=== PATIENT | male | born 1950 ===

== ENCOUNTER 2017-12-12 13:38 | Inpatient (IN) | payer MEDICARE ==
[2017-12-12] VITALS (12 sets, daily range): BP systolic 94–125; BP diastolic 64–77; BMI 22.2
[~2017-12-12] VITALS: Ht 172.7 cm; Wt 66.3 kg
--- NOTE | ~2017-12-12 | EC ---
PATIENT:ANAM VALLES DATE OF SERVICE: 12/12/17 SEX: M MEDICAL RECORD: [id number] DATE OF : [birth year] LOCATION:[facility] AGE OF PATIENT: 67 ADMISSION DATE: 12/12/17 REFERRING PHYSICIAN: INTERPRETING PHYSICIAN: CAROLINE BRUCE MD ECHOCARDIOGRAM REPORT ECHO CHARGES 5 ECHO LIMITED Date: 12/13 CLINICAL DIAGNOSIS: CHF, ASSESS EF ECHOCARDIOGRAPHIC MEASUREMENTS (adult normal given) AC root (d.<3.7cm) cm LV Septum d (<1.2 cm> cm Valve Excursion cm LV Septum (systole) cm Left Atria (s.<4.0cm> cm LVPW d(<1.2cm) cm RV (d.<2.3cm) cm LVPW (sytole) cm LV diastole(<5.6CM) cm MV E-F(>70mm/sec) cm LV systole cm LVOT Diameter cm MV exc.(>10mm) cm Est.ejection fraction (50-75%) % DOPPLER: LVIT cm/sec A cm/sec E cm/sec LA cm/sec RVSP mmHg LVOT cm/sec AOP1/2T m/s Asc. Ao cm/sec RVOT cm/sec RA cm/sec PA cm/sec AV Gradient Peak mmHg AV Mean mmHg AV Area cm MV Gradient Peak mmHg MV Mean mmHg MV Area cm COMMENTS: Poured Wall Foreman: 2 ANIKA TIWARI Capsule Maker: 1 Dr. Bruce TAPE# PACS Pericardial Effusion N DATE OF SERVICE: Limited echocardiogram due to inability to obtain good views. FINDINGS: Left ventricular chamber size is within normal limits. Left ventricular function appears to be preserved at 55%. No evidence of pericardial effusion. Left ventricular thrombus. Left atrium, right atrium, and right ventricle chamber sizes are within normal limits. TRANSINT:[id number] Voice Confirmation ID: [id number] DOCUMENT ID: [id number] ECHOCARDIOGRAM REPORT [id number] ANAM VALLES JEFFREY MD at 1713 CC: [id number] DICTATION DATE: 12/13/17 1235 BILLING CLINICIAN: 12/13/17 1256 [place] [address]
[2017-12-12] MEDS ORDERED: PHENERGAN25 M1 PO (14:16)
[2017-12-12] MEDS ORDERED: MOBIC7.5 MG PO (14:16)
[2017-12-12] MEDS ORDERED: LOPRESSOR25 MG PO (14:17)
[2017-12-12] MEDS ORDERED: ZYLOPRIM300 MG PO (14:17)
[2017-12-12] MEDS ORDERED: MACROBID100 MG PO (14:17)
[2017-12-12] MEDS ORDERED: KEPPRA500 MG PO (14:18)
[2017-12-12] MEDS ORDERED: LISINOPRIL10 MG PO (14:18)
[2017-12-12] MEDS ORDERED: DEPAKOTE250 MG PO (14:18)
[2017-12-12] MEDS ORDERED: ZOCOR40 MG PO (14:20)
[2017-12-12] MEDS ORDERED: RISPERDAL0.5 MG PO (14:21)
[2017-12-12] MEDS ORDERED: FUROSEMIDE40 MG PO (14:22)
[2017-12-12] MEDS ORDERED: ZANAFLEX2 M1 PO (14:22)
[2017-12-12] MEDS ORDERED: K-TAB10 MEQ PO (14:23)
[2017-12-12] MEDS ORDERED: GEODON20 MG PO (14:24)
[2017-12-12] MEDS ORDERED: REMERON15 MG PO (14:24)
[2017-12-12] MEDS ORDERED: IBUPROFEN800 MG PO (14:24)
[2017-12-12] MEDS ORDERED: NEXIUM40 MG PO (14:25)
[2017-12-12] MEDS ORDERED: NIFEDIPINE ER60 MG PO (14:25)
[2017-12-12] MEDS ORDERED: HYDROCODONE-APA1 TAB PO (14:26)
[2017-12-12] MEDS ORDERED: XANAX1 MG PO (14:27)
[2017-12-12] MEDS ORDERED: BAYER CHEWABLE81 MG PO (14:28)
[2017-12-12] MEDS ORDERED: NEURONTIN 300300 MG PO (14:28)
[2017-12-12] MEDS ORDERED: OXYBUTYNIN CHLOR5 MG PO (14:28)
[2017-12-12] MEDS ORDERED: COLACE100 MG PO (14:29)
[2017-12-12] MEDS ORDERED: ZANTAC150 MG PO (14:29)
[2017-12-12] MEDS ORDERED: EAR WAX REMOVAL15 ML TP (14:30)
[2017-12-12] MEDS ORDERED: TUMS X-STR300 MG PO (14:30)
[2017-12-12 16:38] LABS: COLOR DK YELLOW (YELLOW)
[2017-12-12 16:39] LABS: APPEARANCE HAZY (CLEAR); BILIRUBIN 1+ (NEGATIVE); GLUCOSE NEGATIVE (NEGATIVE); KETONE NEGATIVE (NEGATIVE); NITRITE NEGATIVE (NEGATIVE); PROTEIN NEGATIVE (NEGATIVE); SPECIFIC GRAVITY 1.015 (1.005-1.020); UROBILINOGEN NORMAL (NORMAL)
[2017-12-12 16:40] LABS: AMORPHOUS SEDIMENT <1+ /lpf (NONE SEEN); BACTERIA FEW /hpf (NONE SEEN); WHITE CELLS - URINE OCC /hpf (0-5)
[2017-12-12 17:23] LABS: BASOPHILS 0.2 % (0-2); EOSINOPHILS 0 % (0-7); HEMATOCRIT 31.8 % (42.0-54.0); HEMOGLOBIN 10.9 g/dL (13.5-17.5); IMMATURE GRANULOCYTES 0.8 % (0-5); LYMPHOCYTES 4.3 % (15-50); MCH 29.3 pg (26.0-34.0); MCHC 34.3 g/dL (31.0-37.0); MCV 85.5 fL (80.0-100.0); MEAN PLATELET VOLUME 10.2 fL (7.4-10.4); MONOCYTES 5.2 % (2-11); NEUTROPHILS 89.5 % (40-80); PLATELET COUNT 101 10x3/uL (130-400); RBC 3.72 10x6/uL (4.20-6.10); RDW 15.9 % (11.5-14.5)
[2017-12-12 17:41] LABS: % SATURATION 7 % (15-55); IRON 16 ug/dl (35-150); TOTAL IRON BIND CAPACITY 219 ug/dl (260-445); UNSAT IRON BIND CAPACITY 203 ug/dl (150-375)
[2017-12-12 18:26] LABS: ANION GAP 19.9 mmol/L (8-16); CALCIUM 8.9 mg/dL (8.5-10.1); CARBON DIOXIDE 23.3 mmol/L (21.0-32.0); CREATININE - SERUM 2.5 mg/dL (0.6-1.3); MAGNESIUM - SERUM 2.1 mg/dL (1.8-2.4); POTASSIUM - SERUM 4.2 mmol/L (3.5-5.1)
[2017-12-13] VITALS (24 sets, daily range): BP systolic 111–151; BP diastolic 67–85; BMI 22.2
[2017-12-13 03:55] LABS: BASOPHILS 0.1 % (0-2); EOSINOPHILS 0 % (0-7); HEMATOCRIT 31.4 % (42.0-54.0); HEMOGLOBIN 10.8 g/dL (13.5-17.5); IMMATURE GRANULOCYTES 0.5 % (0-5); LYMPHOCYTES 4.3 % (15-50); MCH 29.1 pg (26.0-34.0); MCHC 34.4 g/dL (31.0-37.0); MCV 84.6 fL (80.0-100.0); MEAN PLATELET VOLUME 10.6 fL (7.4-10.4); MONOCYTES 5.1 % (2-11); RBC 3.71 10x6/uL (4.20-6.10); RDW 15.8 % (11.5-14.5); WBC 9.3 10x3/uL (4.8-10.8)
[2017-12-13 03:56] LABS: PLATELET COUNT 122 10x3/uL (130-400)
[2017-12-13 04:09] LABS: ALBUMIN 2.6 g/dL (3.4-5.0); ANION GAP 13.3 mmol/L (8-16); BILIRUBIN - TOTAL 0.7 mg/dL (0.2-1.3); CALCIUM 8.7 mg/dL (8.5-10.1); CARBON DIOXIDE 27.6 mmol/L (21.0-32.0); POTASSIUM - SERUM 3.9 mmol/L (3.5-5.1); PROTEIN - SERUM 7.2 g/dL (6.4-8.2)
[2017-12-13 04:11] LABS: CREATININE - SERUM 1.7 mg/dL (0.6-1.3)
[2017-12-14] VITALS (12 sets, daily range): BP systolic 107–151; BP diastolic 64–82
[2017-12-14 01:20] LABS: HEMATOCRIT 29.1 % (42.0-54.0); HEMOGLOBIN 10.2 g/dL (13.5-17.5)
[2017-12-14 04:04] LABS: BASOPHILS 0.2 % (0-2); EOSINOPHILS 0.1 % (0-7); HEMATOCRIT 31.4 % (42.0-54.0); HEMOGLOBIN 10.7 g/dL (13.5-17.5); IMMATURE GRANULOCYTES 0.5 % (0-5); LYMPHOCYTES 7.2 % (15-50); MCH 29.3 pg (26.0-34.0); MCHC 34.1 g/dL (31.0-37.0); MONOCYTES 6.2 % (2-11); NEUTROPHILS 85.8 % (40-80); PLATELET COUNT 141 10x3/uL (130-400); RBC 3.65 10x6/uL (4.20-6.10); RDW 15.9 % (11.5-14.5); WBC 9.2 10x3/uL (4.8-10.8)
[2017-12-14 04:27] LABS: ALBUMIN 2.4 g/dL (3.4-5.0); ANION GAP 11.3 mmol/L (8-16); BILIRUBIN - TOTAL 1.28 mg/dL (0.2-1.3); CALCIUM 9.2 mg/dL (8.5-10.1); CARBON DIOXIDE 29.4 mmol/L (21.0-32.0); POTASSIUM - SERUM 3.7 mmol/L (3.5-5.1); PROTEIN - SERUM 6.9 g/dL (6.4-8.2)
[2017-12-14 04:37] LABS: CREATININE - SERUM 1.2 mg/dL (0.6-1.3)
[2017-12-14 08:50] LABS: HEMATOCRIT 30.5 % (42.0-54.0); HEMOGLOBIN 10.7 g/dL (13.5-17.5)
[2017-12-14 14:52] LABS: HEMATOCRIT 30.7 % (42.0-54.0); HEMOGLOBIN 10.4 g/dL (13.5-17.5)
[2017-12-15] VITALS: BP 158/85
[2017-12-15 04:00] VITALS: BP 124/68
[2017-12-15 06:42] LABS: BASOPHILS 0.1 % (0-2); EOSINOPHILS 0.4 % (0-7); HEMATOCRIT 27.9 % (42.0-54.0); HEMOGLOBIN 9.4 g/dL (13.5-17.5); IMMATURE GRANULOCYTES 1.6 % (0-5); LYMPHOCYTES 5.8 % (15-50); MCHC 33.7 g/dL (31.0-37.0); MCV 86.1 fL (80.0-100.0); MEAN PLATELET VOLUME 11.3 fL (7.4-10.4); MONOCYTES 13.5 % (2-11); NEUTROPHILS 78.6 % (40-80); PLATELET COUNT 162 10x3/uL (130-400); RBC 3.24 10x6/uL (4.20-6.10); RDW 15.9 % (11.5-14.5); WBC 9.2 10x3/uL (4.8-10.8)
[2017-12-15 07:03] LABS: ALBUMIN 2.1 g/dL (3.4-5.0); ALKALINE PHOSPHATASE 199 U/L (46-116); BILIRUBIN - TOTAL 0.99 mg/dL (0.2-1.3); CALC OSMOLALITY 266 mosm/kg (275-300); CALCIUM 8.5 mg/dL (8.5-10.1); CARBON DIOXIDE 25.6 mmol/L (21.0-32.0); CHLORIDE - SERUM 98 mmol/L (98-107); GLUCOSE 106 mg/dL (74-106); POTASSIUM - SERUM 3.6 mmol/L (3.5-5.1); PROTEIN - SERUM 6.1 g/dL (6.4-8.2); SODIUM 132 mmol/L (136-145); UREA NITROGEN 19 mg/dL (7-18); eGFR NON AFRICAN AMERICAN 79 mL/min (90-120)
[2017-12-15 07:04] LABS: ALT (SGPT) 48 U/L (10-68)
[2017-12-15 09:18] VITALS: BP 131/70; BP 99/58
[2017-12-15 11:38] VITALS: Ht 172.7 cm; Wt 66.3 kg
[2017-12-15 13:25] VITALS: BP 129/69
[2017-12-15 16:12] LABS: APTT 28.6 SECONDS (22.8-39.4); INR 1.14 (0.85-1.17); PROTIME 14.2 SECONDS (11.6-15.0)
[2017-12-15 16:20] VITALS: BP 121/69
[2017-12-15 20:00] VITALS: BP 130/73
[2017-12-16] VITALS: BP 137/65
[2017-12-16 04:00] VITALS: BP 145/73
[2017-12-16 06:11] LABS: BASOPHILS 0.1 % (0-2); EOSINOPHILS 0.9 % (0-7); HEMATOCRIT 27.9 % (42.0-54.0); HEMOGLOBIN 9.2 g/dL (13.5-17.5); LYMPHOCYTES 5.9 % (15-50); MCH 28.5 pg (26.0-34.0); MCV 86.4 fL (80.0-100.0); MEAN PLATELET VOLUME 10.4 fL (7.4-10.4); MONOCYTES 11.3 % (2-11); NEUTROPHILS 77.8 % (40-80); PLATELET COUNT 171 10x3/uL (130-400); RBC 3.23 10x6/uL (4.20-6.10); WBC 9.3 10x3/uL (4.8-10.8)
[2017-12-16 06:41] LABS: ALKALINE PHOSPHATASE 163 U/L (46-116); CALCIUM 8.5 mg/dL (8.5-10.1); CARBON DIOXIDE 25.1 mmol/L (21.0-32.0); CHLORIDE - SERUM 102 mmol/L (98-107); CREATININE - SERUM 0.8 mg/dL (0.6-1.3); GLUCOSE 89 mg/dL (74-106); POTASSIUM - SERUM 3.2 mmol/L (3.5-5.1); PROTEIN - SERUM 5.7 g/dL (6.4-8.2); SODIUM 135 mmol/L (136-145); eGFR NON AFRICAN AMERICAN > 90 mL/min (90-120)
[2017-12-16 06:42] LABS: ALT (SGPT) 30 U/L (10-68); CALC OSMOLALITY 268 mosm/kg (275-300); UREA NITROGEN 13 mg/dL (7-18)
[2017-12-16 08:22] VITALS: BP 113/71
[2017-12-16 12:48] VITALS: BP 132/70
[2017-12-16 16:08] VITALS: BP 125/77
[2017-12-16 20:00] VITALS: BP 136/73
[2017-12-17] VITALS: BP 126/70
[2017-12-17 05:58] VITALS: BP 121/71
[2017-12-17 07:25] LABS: BASOPHILS 0.2 % (0-2); EOSINOPHILS 1.3 % (0-7); HEMATOCRIT 30.4 % (42.0-54.0); HEMOGLOBIN 10.1 g/dL (13.5-17.5); IMMATURE GRANULOCYTES 5.2 % (0-5); LYMPHOCYTES 7.5 % (15-50); MCHC 33.2 g/dL (31.0-37.0); MCV 87.4 fL (80.0-100.0); MEAN PLATELET VOLUME 10.3 fL (7.4-10.4); MONOCYTES 8.2 % (2-11); NEUTROPHILS 77.6 % (40-80); PLATELET COUNT 194 10x3/uL (130-400); RBC 3.48 10x6/uL (4.20-6.10); RDW 16.4 % (11.5-14.5); WBC 9.2 10x3/uL (4.8-10.8)
[2017-12-17 07:33] LABS: ALBUMIN 2.2 g/dL (3.4-5.0); ALKALINE PHOSPHATASE 155 U/L (46-116); ALT (SGPT) 31 U/L (10-68); BILIRUBIN - TOTAL 0.46 mg/dL (0.2-1.3); CALC OSMOLALITY 270 mosm/kg (275-300); CALCIUM 9.2 mg/dL (8.5-10.1); CARBON DIOXIDE 25.5 mmol/L (21.0-32.0); CHLORIDE - SERUM 103 mmol/L (98-107); CREATININE - SERUM 0.9 mg/dL (0.6-1.3); GLUCOSE 105 mg/dL (74-106); POTASSIUM - SERUM 3.3 mmol/L (3.5-5.1); PROTEIN - SERUM 6.3 g/dL (6.4-8.2); SODIUM 136 mmol/L (136-145); UREA NITROGEN 11 mg/dL (7-18); eGFR NON AFRICAN AMERICAN 89 mL/min (90-120)
[2017-12-17 08:24] VITALS: BP 138/77
[2017-12-17 13:05] VITALS: BP 142/71
[2017-12-17 15:41] VITALS: BP 138/80
[2017-12-17 21:24] VITALS: BP 136/71
[2017-12-18 04:01] VITALS: BP 146/75
[2017-12-18 07:05] LABS: BASOPHILS 0.1 % (0-2); EOSINOPHILS 2.1 % (0-7); HEMATOCRIT 28.3 % (42.0-54.0); HEMOGLOBIN 9.5 g/dL (13.5-17.5); IMMATURE GRANULOCYTES 5.1 % (0-5); LYMPHOCYTES 6.2 % (15-50); MCH 29.1 pg (26.0-34.0); MCHC 33.6 g/dL (31.0-37.0); MCV 86.5 fL (80.0-100.0); MEAN PLATELET VOLUME 9.4 fL (7.4-10.4); MONOCYTES 8.4 % (2-11); NEUTROPHILS 78.1 % (40-80); PLATELET COUNT 227 10x3/uL (130-400); RBC 3.27 10x6/uL (4.20-6.10); RDW 16.4 % (11.5-14.5); WBC 9.7 10x3/uL (4.8-10.8)
[2017-12-18 07:16] LABS: ALBUMIN 2.1 g/dL (3.4-5.0); ALKALINE PHOSPHATASE 133 U/L (46-116); ALT (SGPT) 32 U/L (10-68); BILIRUBIN - TOTAL 0.41 mg/dL (0.2-1.3); CALC OSMOLALITY 264 mosm/kg (275-300); CALCIUM 8.8 mg/dL (8.5-10.1); CARBON DIOXIDE 24.4 mmol/L (21.0-32.0); CHLORIDE - SERUM 102 mmol/L (98-107); CREATININE - SERUM 0.8 mg/dL (0.6-1.3); GLUCOSE 108 mg/dL (74-106); POTASSIUM - SERUM 3.7 mmol/L (3.5-5.1); SODIUM 133 mmol/L (136-145); eGFR NON AFRICAN AMERICAN > 90 mL/min (90-120)
[2017-12-18 07:20] LABS: UREA NITROGEN 8 mg/dL (7-18)
[2017-12-18 08:55] VITALS: BP 142/77
[2017-12-18 12:12] VITALS: BP 124/73
[2017-12-18 16:12] VITALS: BP 122/70
[2017-12-18 20:00] VITALS: BP 124/71
[2017-12-18 23:49] VITALS: BP 127/76
[2017-12-19 04:00] VITALS: BP 132/76
[2017-12-19 05:55] LABS: BASOPHILS 0.1 % (0-2); HEMATOCRIT 28.5 % (42.0-54.0); HEMOGLOBIN 9.5 g/dL (13.5-17.5); IMMATURE GRANULOCYTES 4.5 % (0-5); LYMPHOCYTES 7.2 % (15-50); MCH 29.1 pg (26.0-34.0); MCHC 33.3 g/dL (31.0-37.0); MCV 87.2 fL (80.0-100.0); MEAN PLATELET VOLUME 9.7 fL (7.4-10.4); MONOCYTES 9.9 % (2-11); NEUTROPHILS 76.3 % (40-80); PLATELET COUNT 265 10x3/uL (130-400); RBC 3.27 10x6/uL (4.20-6.10); RDW 16.8 % (11.5-14.5); WBC 9.5 10x3/uL (4.8-10.8)
[2017-12-19 06:24] LABS: ALBUMIN 2.2 g/dL (3.4-5.0); ALKALINE PHOSPHATASE 132 U/L (46-116); ALT (SGPT) 38 U/L (10-68); CALC OSMOLALITY 269 mosm/kg (275-300); CALCIUM 8.9 mg/dL (8.5-10.1); CARBON DIOXIDE 25.2 mmol/L (21.0-32.0); CHLORIDE - SERUM 102 mmol/L (98-107); CREATININE - SERUM 0.7 mg/dL (0.6-1.3); GLUCOSE 103 mg/dL (74-106); POTASSIUM - SERUM 3.7 mmol/L (3.5-5.1); PROTEIN - SERUM 6.1 g/dL (6.4-8.2); SODIUM 136 mmol/L (136-145); UREA NITROGEN 7 mg/dL (7-18); eGFR NON AFRICAN AMERICAN > 90 mL/min (90-120)
[2017-12-19 08:11] VITALS: BP 139/81
[2017-12-19] MEDS ORDERED: ZOSYN 3.3753.375 G1 IVPB (11:23)
[2017-12-19] MEDS ORDERED: FLORAJEN3 CAPS460 MG PO (11:24)
[2017-12-19] MEDS ORDERED: TESSALON PERLE100 MG PO (11:24)
[2017-12-19] MEDS ORDERED: MUCINEX600 MG PO (11:24)
[2017-12-19] MEDS ORDERED: PROTONIX40 MG PO (11:25)
[2017-12-19 12:15] VITALS: BP 114/76
== END 2017-12-19 16:08 | DRG 871 ==
LOC: D.MS 13:38 → D.ICU 13:38 → D.MS 12-14 15:06
PROVIDERS: Family Medicine; Internal Medicine Nephrology
DX: A41.9 Sepsis, unspecified organism (principal); R65.21 Severe sepsis with septic shock; T83.511A Infection and inflammatory reaction due to indwelling urethral catheter, initial encounter; I13.0 Hypertensive heart and chronic kidney disease with heart failure and stage 1 through stage 4 chronic kidney disease, or unspecified chronic kidney disease; N17.9 Acute kidney failure, unspecified; G81.94 Hemiplegia, unspecified affecting left nondominant side; N18.3 Chronic kidney disease, stage 3 (moderate); I50.9 Heart failure, unspecified; I95.9 Hypotension, unspecified; Z87.891 Personal history of nicotine dependence; D50.9 Iron deficiency anemia, unspecified

== ENCOUNTER 2017-12-19 15:35 | Inpatient (IN) | payer MEDICARE ==
[~2017-12-19] VITALS: Ht 172.7 cm; Wt 61.2 kg
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
--- NOTE | ~2017-12-19 | DS ---
PATIENT:ANAM VALLES :48 MEDICAL RECORD: [id number] DISCHARGE SUMMARY ADMISSION DATE: 12/19/17 DISCHARGE DATE: 12/27/17 This is a discharge dated 12/27/2017 from inpatient rehabilitation. PRIMARY DIAGNOSIS: Decreased functional ability and ability to provide activities of daily living secondary to disuse myopathy. SECONDARY DIAGNOSES: 1. Congestive heart failure. 2. Hyponatremia. 3. Hypokalemia. 4. Pneumonia. 5. Hypertension. 6. Hyperlipidemia. 7. Nocturnal hypoxemia, chronic. 8. Chronic suprapubic catheter. 9. Hemiplegia. 10. Oropharyngeal dysphagia. 11. Iron deficiency anemia. 12. Lung cancer by history. HOSPITAL COURSE: Full H&P is located elsewhere on the chart on this 67-year-old male who was admitted to inpatient rehab for physical therapy and occupational therapy to improve gait, transfer skills, bed mobility, and activities of daily living to a modified independent level. He was evaluated by PT and OT and their plans of care were followed. He required residential care for observation and assessment, medication administration. Electrolytes were managed by protocol. He remained on supplemental oxygen with sleep during this hospital stay and had Zosyn for antibiotic coverage. He was cooperative with therapies, progressing towards goals. Case management was involved for discharge planning. He was considered stable for discharge on 12/27/2017. DISCHARGE MEDICATIONS: As per discharge medication reconciliation. DISCHARGE DISPOSITION: The patient is discharged home. He will continue his current diet and level of activity. He will have home health for continued PT and OT. He will follow up with primary care and specialists as directed. At least 30 minutes was spent in this discharge activity. TRANSINT:[id number] Voice Confirmation ID: [id number] DOCUMENT ID: [id number] Dictated By: FRANKIE UREÑA I have interviewed/examined the above patient and agree with these documented findings. DISCHARGE SUMMARY REPORT [id number] ANAM VALLES SCOTT MD at 1757 at 1755 CC: [id number] DICTATION DATE: 02/02/18 1652 BRUSH MATERIAL PREPARER: 02/03/18 1120 DIS IN 12/27/17 [id number] [place] [address]
[~2017-12-19 15:35] MED LIST: BAYER CHEWABLE81 MG PO; COLACE100 MG PO; DEPAKOTE250 MG PO; EAR WAX REMOVAL15 ML TP; FLORAJEN3 CAPS460 MG PO; FUROSEMIDE40 MG PO; GEODON20 MG PO; HYDROCODONE-APA1 TAB PO; IBUPROFEN800 MG PO; K-TAB10 MEQ PO; KEPPRA500 MG PO; LISINOPRIL10 MG PO; LOPRESSOR25 MG PO; MACROBID100 MG PO; MOBIC7.5 MG PO; MUCINEX600 MG PO; NEURONTIN 300300 MG PO; NEXIUM40 MG PO; NIFEDIPINE ER60 MG PO; OXYBUTYNIN CHLOR5 MG PO; PHENERGAN25 M1 PO; PROTONIX40 MG PO; REMERON15 MG PO; RISPERDAL0.5 MG PO; TESSALON PERLE100 MG PO; TUMS X-STR300 MG PO; XANAX1 MG PO; ZANAFLEX2 M1 PO; ZANTAC150 MG PO; ZOCOR40 MG PO; ZOSYN 3.3753.375 G1 IVPB; ZYLOPRIM300 MG PO
[2017-12-19 17:23] VITALS: BP 121/79; BMI 20.5
[2017-12-19 19:00] VITALS: BP 125/73
[2017-12-20 07:37] LABS: BASOPHILS 0.3 % (0-2); EOSINOPHILS 1.5 % (0-7); HEMATOCRIT 31.9 % (42.0-54.0); HEMOGLOBIN 10.7 g/dL (13.5-17.5); IMMATURE GRANULOCYTES 3.7 % (0-5); LYMPHOCYTES 6.2 % (15-50); MCH 29.3 pg (26.0-34.0); MCHC 33.5 g/dL (31.0-37.0); MCV 87.4 fL (80.0-100.0); MEAN PLATELET VOLUME 9.4 fL (7.4-10.4); MONOCYTES 6.9 % (2-11); NEUTROPHILS 81.4 % (40-80); PLATELET COUNT 257 10x3/uL (130-400); RBC 3.65 10x6/uL (4.20-6.10)
[2017-12-20 08:03] VITALS: BP 111/72
[2017-12-20 08:11] LABS: CALC OSMOLALITY 268 mosm/kg (275-300); CARBON DIOXIDE 25.8 mmol/L (21.0-32.0); CHLORIDE - SERUM 100 mmol/L (98-107); GLUCOSE 116 mg/dL (74-106); POTASSIUM - SERUM 3.7 mmol/L (3.5-5.1); SODIUM 135 mmol/L (136-145); UREA NITROGEN 8 mg/dL (7-18); eGFR NON AFRICAN AMERICAN 89 mL/min (90-120)
[2017-12-20 08:14] LABS: CREATININE - SERUM 0.9 mg/dL (0.6-1.3)
[2017-12-20 13:20] VITALS: Ht 172.7 cm; Wt 61.2 kg
[2017-12-20 19:00] VITALS: BP 111/66
[2017-12-21 07:45] VITALS: BP 124/68
[2017-12-21 20:30] VITALS: BP 71/42
[2017-12-22 10:10] VITALS: BP 70/42
[2017-12-22 20:30] VITALS: BP 80/48
[2017-12-23 06:31] LABS: BASOPHILS 0.1 % (0-2); EOSINOPHILS 1.9 % (0-7); HEMATOCRIT 28.3 % (42.0-54.0); HEMOGLOBIN 9.4 g/dL (13.5-17.5); IMMATURE GRANULOCYTES 6.9 % (0-5); LYMPHOCYTES 9.6 % (15-50); MCH 28.8 pg (26.0-34.0); MCHC 33.2 g/dL (31.0-37.0); MCV 86.8 fL (80.0-100.0); MEAN PLATELET VOLUME 9.1 fL (7.4-10.4); MONOCYTES 11.4 % (2-11); NEUTROPHILS 70.1 % (40-80); PLATELET COUNT 226 10x3/uL (130-400); RBC 3.26 10x6/uL (4.20-6.10); RDW 17.2 % (11.5-14.5); WBC 6.9 10x3/uL (4.8-10.8)
[2017-12-23 06:48] LABS: ANION GAP 13.8 mmol/L (8-16); CALCIUM 8.2 mg/dL (8.5-10.1); CARBON DIOXIDE 24.6 mmol/L (21.0-32.0); CREATININE - SERUM 1.8 mg/dL (0.6-1.3); POTASSIUM - SERUM 3.4 mmol/L (3.5-5.1)
[2017-12-23 08:00] VITALS: BP 91/55
[2017-12-23 19:00] VITALS: BP 102/56
[2017-12-24 08:42] VITALS: BP 101/65
[2017-12-24 19:00] VITALS: BP 104/62
[2017-12-25 07:49] LABS: BASOPHILS 0.4 % (0-2); EOSINOPHILS 1.1 % (0-7); HEMATOCRIT 28.5 % (42.0-54.0); HEMOGLOBIN 9.3 g/dL (13.5-17.5); MCH 28.9 pg (26.0-34.0); MCHC 32.6 g/dL (31.0-37.0); MCV 88.5 fL (80.0-100.0); MEAN PLATELET VOLUME 8.4 fL (7.4-10.4); MONOCYTES 12.7 % (2-11); NEUTROPHILS 72.8 % (40-80); PLATELET COUNT 215 10x3/uL (130-400); RBC 3.22 10x6/uL (4.20-6.10); RDW 17.3 % (11.5-14.5); WBC 5.5 10x3/uL (4.8-10.8)
[2017-12-25 08:00] VITALS: BP 125/56
[2017-12-25 08:09] LABS: CALC OSMOLALITY 268 mosm/kg (275-300); CALCIUM 8.5 mg/dL (8.5-10.1); CARBON DIOXIDE 27.4 mmol/L (21.0-32.0); CHLORIDE - SERUM 102 mmol/L (98-107); CREATININE - SERUM 0.7 mg/dL (0.6-1.3); GLUCOSE 100 mg/dL (74-106); POTASSIUM - SERUM 3.7 mmol/L (3.5-5.1); SODIUM 135 mmol/L (136-145); UREA NITROGEN 10 mg/dL (7-18); eGFR NON AFRICAN AMERICAN > 90 mL/min (90-120)
[2017-12-25 19:00] VITALS: BP 95/50
[2017-12-26 08:00] VITALS: BP 105/58
[2017-12-26 19:00] VITALS: BP 113/64
[2017-12-27 07:17] LABS: BASOPHILS 0.4 % (0-2); EOSINOPHILS 1.6 % (0-7); HEMATOCRIT 28.2 % (42.0-54.0); HEMOGLOBIN 9.1 g/dL (13.5-17.5); IMMATURE GRANULOCYTES 1.2 % (0-5); LYMPHOCYTES 14.7 % (15-50); MCH 28.7 pg (26.0-34.0); MCHC 32.3 g/dL (31.0-37.0); NEUTROPHILS 71.1 % (40-80); PLATELET COUNT 236 10x3/uL (130-400); RBC 3.17 10x6/uL (4.20-6.10); RDW 17.4 % (11.5-14.5); WBC 5.1 10x3/uL (4.8-10.8)
[2017-12-27 07:41] LABS: CALC OSMOLALITY 272 mosm/kg (275-300); CALCIUM 8.6 mg/dL (8.5-10.1); CARBON DIOXIDE 28.5 mmol/L (21.0-32.0); CHLORIDE - SERUM 103 mmol/L (98-107); GLUCOSE 94 mg/dL (74-106); POTASSIUM - SERUM 3.6 mmol/L (3.5-5.1); SODIUM 137 mmol/L (136-145); UREA NITROGEN 10 mg/dL (7-18); eGFR NON AFRICAN AMERICAN 89 mL/min (90-120)
[2017-12-27 07:43] LABS: CREATININE - SERUM 0.9 mg/dL (0.6-1.3)
[2017-12-27 08:00] VITALS: BP 144/76
[2017-12-27] MEDS ORDERED: LOPRESSOR25 MG PO (08:12)
== END 2017-12-27 14:39 | disposition home health service (06) | DRG 91 ==
LOC: D.REHAB 15:35
PROVIDERS: Emergency Medicine
DX: G72.89 Other specified myopathies (principal); A41.9 Sepsis, unspecified organism; R65.21 Severe sepsis with septic shock; N17.9 Acute kidney failure, unspecified; N39.0 Urinary tract infection, site not specified; G81.90 Hemiplegia, unspecified affecting unspecified side; I13.0 Hypertensive heart and chronic kidney disease with heart failure and stage 1 through stage 4 chronic kidney disease, or unspecified chronic kidney disease; R13.12 Dysphagia, oropharyngeal phase; R47.1 Dysarthria and anarthria; I50.9 Heart failure, unspecified; D50.9 Iron deficiency anemia, unspecified; Z85.118 Personal history of other malignant neoplasm of bronchus and lung; N18.3 Chronic kidney disease, stage 3 (moderate)